=== PATIENT | male | born 1950 | race Caucasian/White ===

== ENCOUNTER 2017-01-21 11:41 | Outpatient (CLI) | payer MEDICARE ==
[~2017-01-21 11:41] MED LIST: ALLO300T2 PO; ARIP10TA15 PO; ASPI81TA2 PO; BLOO-129 IN; BUPR150T12 PO; CARV12.52 PO; CIPR-262 PO; ERGO500047 PO; ESOM40CA PO; HYDR-3326 PO; LEVO25TA7 PO; LISI10TA5 PO; METF500T4 PO; OLOP5DRO RIGHTEYE; RISP0.5T20 PO; SIMV40TA5 PO; SUCR1TAB PO; SULF1TAB48 PO; TRAZ-144 PO
== END 2017-01-21 23:59 | disposition home health service (06) ==
LOC: WOU 11:41
PROVIDERS: ATTEND Podiatrist Foot & Ankle Surgery
DX: E11.42 Type 2 diabetes mellitus with diabetic polyneuropathy (principal); Z89.412 Acquired absence of left great toe; L60.3 Nail dystrophy; M24.574 Contracture, right foot; Z85.01 Personal history of malignant neoplasm of esophagus; I10 Essential (primary) hypertension; I25.10 Atherosclerotic heart disease of native coronary artery without angina pectoris; Z95.5 Presence of coronary angioplasty implant and graft; Z87.891 Personal history of nicotine dependence
CPT/HCPCS: G0463

== ENCOUNTER 2017-02-25 11:03 | Outpatient (CLI) | payer MEDICARE | END 2017-02-25 23:59 | disposition home health service (06) | LOC: WOU 11:03 | PROVIDERS: ATTEND Podiatrist Foot & Ankle Surgery | DX: E11.42 Type 2 diabetes mellitus with diabetic polyneuropathy (principal); L60.3 Nail dystrophy; Z89.412 Acquired absence of left great toe; Z85.01 Personal history of malignant neoplasm of esophagus; Z87.891 Personal history of nicotine dependence; E11.65 Type 2 diabetes mellitus with hyperglycemia; Z86.14 Personal history of Methicillin resistant Staphylococcus aureus infection; Z95.820 Peripheral vascular angioplasty status with implants and grafts; Z95.810 Presence of automatic (implantable) cardiac defibrillator; I25.10 Atherosclerotic heart disease of native coronary artery without angina pectoris; I10 Essential (primary) hypertension | CPT/HCPCS: G0463 ==

== ENCOUNTER 2017-04-01 11:10 | Outpatient (CLI) | payer MEDICARE | END 2017-04-01 23:59 | disposition home health service (06) | LOC: WOU 11:10 | PROVIDERS: ATTEND Podiatrist Foot & Ankle Surgery | DX: Z89.412 Acquired absence of left great toe (principal); Z09 Encounter for follow-up examination after completed treatment for conditions other than malignant neoplasm; E11.42 Type 2 diabetes mellitus with diabetic polyneuropathy; L60.3 Nail dystrophy | CPT/HCPCS: G0463 ==

== ENCOUNTER 2017-09-30 11:30 | Outpatient (CLI) | payer MEDICARE | END 2017-09-30 23:59 | disposition home health service (06) | LOC: WOU 11:30 | PROVIDERS: ATTEND Podiatrist Foot & Ankle Surgery | DX: E11.621 Type 2 diabetes mellitus with foot ulcer (principal); L97.413 Non-pressure chronic ulcer of right heel and midfoot with necrosis of muscle; L60.3 Nail dystrophy; Z89.421 Acquired absence of other right toe(s); Z89.412 Acquired absence of left great toe; E11.42 Type 2 diabetes mellitus with diabetic polyneuropathy; Z79.84 Long term (current) use of oral hypoglycemic drugs; Z94.7 Corneal transplant status; I25.10 Atherosclerotic heart disease of native coronary artery without angina pectoris; Z95.5 Presence of coronary angioplasty implant and graft; Z87.891 Personal history of nicotine dependence; Z79.899 Other long term (current) drug therapy | CPT/HCPCS: 11043; A6402; J3490 ==

== ENCOUNTER 2017-10-09 13:40 | Outpatient (CLI) | payer MEDICARE ==
[~2017-10-09 13:40] MED LIST changes: -ARIP10TA15 PO; +ARIP10TA9 PO; +ASPI-1169 PO; -ASPI81TA2 PO; +ERGO500040 PO; -ERGO500047 PO
== END 2017-10-09 23:59 | disposition home or self-care (01) ==
LOC: WOU 13:40
PROVIDERS: ATTEND Podiatrist Foot & Ankle Surgery
DX: E11.621 Type 2 diabetes mellitus with foot ulcer (principal); L97.322 Non-pressure chronic ulcer of left ankle with fat layer exposed; Z89.412 Acquired absence of left great toe; Z89.421 Acquired absence of other right toe(s); L60.3 Nail dystrophy; L97.413 Non-pressure chronic ulcer of right heel and midfoot with necrosis of muscle; Z87.891 Personal history of nicotine dependence; T14.90XS Injury, unspecified, sequela; W20.8XXS Other cause of strike by thrown, projected or falling object, sequela; E11.42 Type 2 diabetes mellitus with diabetic polyneuropathy; Z79.84 Long term (current) use of oral hypoglycemic drugs; I25.10 Atherosclerotic heart disease of native coronary artery without angina pectoris; I10 Essential (primary) hypertension; Z95.5 Presence of coronary angioplasty implant and graft; Z85.01 Personal history of malignant neoplasm of esophagus
CPT/HCPCS: 11042; A6402; J3490

== ENCOUNTER 2017-10-10 09:57 | Outpatient (CLI) | payer MEDICARE | END 2017-10-10 23:59 | disposition home or self-care (01) | LOC: WOU 09:57 | PROVIDERS: ATTEND Podiatrist Foot & Ankle Surgery | DX: E11.51 Type 2 diabetes mellitus with diabetic peripheral angiopathy without gangrene (principal); E11.622 Type 2 diabetes mellitus with other skin ulcer; I77.1 Stricture of artery; I70.201 Unspecified atherosclerosis of native arteries of extremities, right leg; L98.499 Non-pressure chronic ulcer of skin of other sites with unspecified severity | CPT/HCPCS: 11042; 93970-TC; A6402 ==

== ENCOUNTER 2017-10-17 11:35 | Outpatient (CLI) | payer MEDICARE | END 2017-10-17 23:59 | disposition home health service (06) | LOC: WOU 11:35 | PROVIDERS: ATTEND Podiatrist Foot & Ankle Surgery | DX: E11.621 Type 2 diabetes mellitus with foot ulcer (principal); L97.515 Non-pressure chronic ulcer of other part of right foot with muscle involvement without evidence of necrosis; Z89.412 Acquired absence of left great toe; Z89.421 Acquired absence of other right toe(s); E11.51 Type 2 diabetes mellitus with diabetic peripheral angiopathy without gangrene; E11.42 Type 2 diabetes mellitus with diabetic polyneuropathy; Z79.84 Long term (current) use of oral hypoglycemic drugs; Z79.899 Other long term (current) drug therapy | CPT/HCPCS: 11042; A6402 ==